=== PATIENT | male | born 1985 ===

== ENCOUNTER 2021-03-17 22:36 | Emergency (ER) | payer SELFPAY | END 2021-03-17 23:31 | disposition home or self-care (01) | LOC: MW.ED 22:36 | DX: S80.212A Abrasion, left knee, initial encounter (principal); F10.129 Alcohol abuse with intoxication, unspecified; W18.39XA Other fall on same level, initial encounter | CPT/HCPCS: 99283 ==

== ENCOUNTER 2022-11-14 09:18 | Inpatient (IN) | payer MEDICAID ==
[2022-11-14] MEDS ORDERED: Ondansetron 4 MG/2 ML SDV IVPUSH ONE ×2 (09:33→10:36)
[2022-11-14] MEDS ORDERED: Sodium Chloride 0.9% 1,000 ML IV ONE ×2 (09:33→10:50)
[2022-11-14] MEDS ORDERED: LORazepam 2 MG/ML SDV IVPUSH ONE ×2 (09:33→12:09)
[2022-11-14 09:42] LABS: BASOPHILS PERCENT AUTO 0.5 % (0.0-1.5); EOSINOPHILS PERCENT AUTO 0.7 % (0.0-7.0); HEMATOCRIT 42.5 % (38.0-50.0); HEMOGLOBIN 15.2 g/dL (13.0-17.0); LYMPHOCYTES ABSOLUTE AUTO 0.5 K/uL (0.6-2.4); LYMPHOCYTES PERCENT AUTO 9.2 % (16.0-40.0); MEAN CORPUSCULAR HEMOGLOBIN 30.9 pg (27.0-32.0); MEAN CORPUSCULAR HGB CONC 35.8 g/dL (31.0-37.0); MEAN CORPUSCULAR VOLUME 86.4 fL (80.0-98.0); MONOCYTES ABSOLUTE AUTO 0.4 K/uL (0.0-0.8); MONOCYTES PERCENT AUTO 6.1 % (0.0-15.0); NEUTROPHILS ABSOLUTE AUTO 4.9 K/uL (1.4-5.7); NEUTROPHILS PERCENT AUTO 83.5 % (48.0-80.0); NRBC ABSOLUTE 0 K/uL; RED BLOOD CELL COUNT 4.92 M/uL (4.50-5.90); WHITE BLOOD CELL COUNT,WBC 5.86 K/uL (4.0-11.0)
[2022-11-14] MEDS ORDERED: Thiamine 100 MG in Sodium Chloride 0.9% 100 ML IV STA (09:48)
[2022-11-14] MEDS ORDERED: Folic Acid 1 MG/0.2 ML UD Syringe IV STA (09:48)
[2022-11-14 09:50] LABS: INR 1.13 (0.86-1.11); PTT,PARTIAL THROMBOPLSTIN TIME 25.9 SEC (23.9-30.7)
[2022-11-14] MEDS ORDERED: Thiamine 200 MG/2 ML MDV IVPUSH ONE (10:00)
[2022-11-14 10:03] LABS: A/G RATIO 1.3 (0.9-1.6); ALANINE AMINOTRANSFERASE,ALT 271 IU/L (14-63); ALBUMIN 4.8 g/dL (3.4-5.0); ALKALINE PHOSPHATASE 133 U/L (46-116); ASPARTATE AMNIOTRANSFERASE,AST 383 IU/L (15-37); BILIRUBIN TOTAL 4.4 mg/dL (0.2-1.0); BLOOD UREA NITROGEN,BUN 12 mg/dL (7.0-18.0); CALCIUM 9.4 mg/dL (8.5-10.1); CARBON DIOXIDE,CO2 19.5 mmol/L (21.0-32.0); CHLORIDE,CL 90 mmol/L (98-107); CREATININE 0.9 mg/dL (0.8-1.3); EST CRCL DRUG DOSING (CG) 128.23 mL/min; ETHANOL BLOOD MEDICAL 71 mg/dL; GLUCOSE RANDOM 218 mg/dL (74-106); LIPASE 406 U/L (73-393); MAGNESIUM 1.4 mg/dL (1.8-2.4); POTASSIUM,K 2.5 mmol/L (3.5-5.1); PROTEIN TOTAL,TP 8.6 g/dL (6.4-8.2); SODIUM,NA 133 mmol/L (136-148)
[2022-11-14 10:05] LABS: ESTIMATED GFR 114 mL/min (>60)
[2022-11-14 10:06] LABS: PLATELET COUNT,PLT 98 K/uL (150-400)
[2022-11-14] MEDS ORDERED: Potassium Chloride 20 MEQ Tab.ER PO ONE ×2 (10:10→17:29)
[2022-11-14] MEDS ORDERED: Magnesium Sulfate/Water 2 GM in Premix Bag 1 BAG IV ONE (10:10)
[2022-11-14] MEDS ORDERED: Sodium Chloride 0.9% 500 ML IV ONE (10:15)
[2022-11-14] MEDS: Potassium Chloride 100 ML IV SCH ×2 (10:31→12:29)
[2022-11-14 10:47] LABS: LACTIC ACID 2.7 mmol/L (0.4-2.0)
[2022-11-14 12:25] LABS: APPEARANCE,URINE CLEAR; COLOR,URINE YELLOW; GLUCOSE,URINE NEGATIVE (NEGATIVE); KETONES,URINE 15 mg/dL (NEGATIVE); LEUKOCYTE ESTERASE,URINE NEGATIVE (NEGATIVE); NITRITE,URINE NEGATIVE (NEGATIVE); OCCULT BLOOD,URINE TRACE-INTACT (NEGATIVE); PH,URINE 6.5 (5.0-8.0); PROTEIN,URINE 100 mg/dL (NEGATIVE)
[2022-11-14 12:35] LABS: AMPHETAMINES SCREEN, URINE NEGATIVE (CUTOFF=500); BARBITURATE SCREEN,URINE NEGATIVE (CUTOFF=200); BENZODIAZEPINES SCREEN,URINE PRESUMPTIVE POSITIVE (CUTOFF=150); BUPRENORPHINE SCREEN,URINE NEGATIVE (CUTOFF=10); METHADONE SCREEN, URINE NEGATIVE (CUTOFF=200); METHAMPHETAMINES SCREEN, URINE NEGATIVE (CUTOFF=500); OXYCODONE SCREEN,URINE NEGATIVE (CUT0FF=100); PCP SCREEN,URINE NEGATIVE (CUTOFF=25); PROPOXYPHENE SCREEN,URINE NEGATIVE (CUTOFF=300); THC SCREEN,URINE 20 NG/ML NEGATIVE (CUTOFF=50)
[2022-11-14 12:47] LABS: BILIRUBIN,URINE SMALL (NEGATIVE)
[2022-11-14 12:48] LABS: BACTERIA,URINE RARE (NEGATIVE); EPITHELIAL CELLS,URINE FEW (NONE-FEW); MUCUS,URINE MODERATE (NONE-MOD); WBC,URINE 0-1 (0-5/HPF)
[2022-11-14] MEDS ORDERED: Sodium Chloride 0.9% 2.5 ML Syringe FLUSH PRN (13:30)
[2022-11-14] MEDS ORDERED: Sodium Chloride 0.9% 10 ML Syringe FLUSH PRN (13:30)
[2022-11-14] MEDS: Lactulose Soln 10 GM/15 ML 15 ML UD Cup PO SCH ×2 (14:26→22:04)
[2022-11-14] MEDS: Lactated Ringers 1,000 ML IV SCH ×2 (14:26→22:44)
[2022-11-14] MEDS: Pantoprazole 40 MG in Sodium Chloride 0.9% 10 ML IVPUSH SCH (14:26)
[2022-11-14 16:51] LABS: MAGNESIUM 1.8 mg/dL (1.8-2.4); PHOSPHORUS 3.8 mg/dL (2.6-4.7)
[2022-11-15] MEDS: Lactulose Soln 10 GM/15 ML 15 ML UD Cup PO SCH (06:47)
[2022-11-15] MEDS: Lactated Ringers 1,000 ML IV SCH ×3 (06:47→22:05)
[2022-11-15 07:17] LABS: BASOPHILS PERCENT AUTO 0.8 % (0.0-1.5); EOSINOPHILS ABSOLUTE AUTO 0.2 K/uL (0.0-0.7); EOSINOPHILS PERCENT AUTO 3.8 % (0.0-7.0); HEMOGLOBIN 12.4 g/dL (13.0-17.0); LYMPHOCYTES ABSOLUTE AUTO 0.5 K/uL (0.6-2.4); LYMPHOCYTES PERCENT AUTO 13.4 % (16.0-40.0); MEAN CORPUSCULAR HEMOGLOBIN 30.5 pg (27.0-32.0); MEAN CORPUSCULAR HGB CONC 34.4 g/dL (31.0-37.0); MEAN CORPUSCULAR VOLUME 88.5 fL (80.0-98.0); MONOCYTES ABSOLUTE AUTO 0.2 K/uL (0.0-0.8); MONOCYTES PERCENT AUTO 5.6 % (0.0-15.0); NEUTROPHILS PERCENT AUTO 76.4 % (48.0-80.0); NRBC ABSOLUTE 0 K/uL; PLATELET COUNT,PLT 73 K/uL (150-400); RED BLOOD CELL COUNT 4.07 M/uL (4.50-5.90); WHITE BLOOD CELL COUNT,WBC 3.96 K/uL (4.0-11.0)
[2022-11-15 07:35] LABS: INR 1.05 (0.86-1.11)
[2022-11-15 07:50] LABS: A/G RATIO 1.2 (0.9-1.6); ALBUMIN 3.6 g/dL (3.4-5.0); BILIRUBIN TOTAL 3.3 mg/dL (0.2-1.0); CALCIUM 8.7 mg/dL (8.5-10.1); CARBON DIOXIDE,CO2 23.6 mmol/L (21.0-32.0); CREATININE 0.5 mg/dL (0.8-1.3); EST CRCL DRUG DOSING (CG) 230.82 mL/min; MAGNESIUM 1.6 mg/dL (1.8-2.4); PHOSPHORUS 2.8 mg/dL (2.6-4.7); PROTEIN TOTAL,TP 6.5 g/dL (6.4-8.2)
[2022-11-15] MEDS: Folic Acid 1 MG Tab PO SCH (08:00)
[2022-11-15] MEDS ORDERED: Potassium Chloride 20 MEQ Tab.ER PO ONE (08:00)
[2022-11-15] MEDS ORDERED: Magnesium Sulfate/Water 4 GM in Premix Bag 1 BAG IV ONE (08:00)
[2022-11-15] MEDS: Thiamine 100 MG Tab PO SCH (08:00)
[2022-11-15] MEDS: Potassium Chloride 20 MEQ in Premix Bag 1 BAG IV SCH ×2 (08:38→10:27)
[2022-11-15] MEDS: LORazepam 2 MG/ML SDV IV PRN ×5 (09:21→22:12)
[2022-11-15] MEDS: Ondansetron 4 MG/2 ML SDV IVPUSH PRN (13:25)
[2022-11-15] MEDS: Pantoprazole 40 MG in Sodium Chloride 0.9% 10 ML IVPUSH SCH (13:56)
[2022-11-16] MEDS: Lactated Ringers 1,000 ML IV SCH (05:45)
[2022-11-16] MEDS: Ondansetron 4 MG/2 ML SDV IVPUSH PRN (06:26)
[2022-11-16 06:51] LABS: INR 1.09 (0.86-1.11)
[2022-11-16 07:07] LABS: BASOPHILS PERCENT AUTO 1.1 % (0.0-1.5); EOSINOPHILS ABSOLUTE AUTO 0.2 K/uL (0.0-0.7); EOSINOPHILS PERCENT AUTO 5.3 % (0.0-7.0); HEMATOCRIT 39.3 % (38.0-50.0); HEMOGLOBIN 13.5 g/dL (13.0-17.0); LYMPHOCYTES ABSOLUTE AUTO 0.6 K/uL (0.6-2.4); LYMPHOCYTES PERCENT AUTO 17.2 % (16.0-40.0); MEAN CORPUSCULAR HEMOGLOBIN 30.5 pg (27.0-32.0); MEAN CORPUSCULAR HGB CONC 34.4 g/dL (31.0-37.0); MEAN CORPUSCULAR VOLUME 88.7 fL (80.0-98.0); MONOCYTES ABSOLUTE AUTO 0.2 K/uL (0.0-0.8); MONOCYTES PERCENT AUTO 6.7 % (0.0-15.0); NEUTROPHILS ABSOLUTE AUTO 2.5 K/uL (1.4-5.7); NEUTROPHILS PERCENT AUTO 69.7 % (48.0-80.0); NRBC ABSOLUTE 0 K/uL; PLATELET COUNT,PLT 92 K/uL (150-400); RED BLOOD CELL COUNT 4.43 M/uL (4.50-5.90)
[2022-11-16 07:16] LABS: ALBUMIN 3.6 g/dL (3.4-5.0); BILIRUBIN TOTAL 2.4 mg/dL (0.2-1.0); CALCIUM 8.8 mg/dL (8.5-10.1); CARBON DIOXIDE,CO2 26.7 mmol/L (21.0-32.0); CREATININE 0.5 mg/dL (0.8-1.3); EST CRCL DRUG DOSING (CG) 230.82 mL/min; MAGNESIUM 1.6 mg/dL (1.8-2.4); POTASSIUM,K 3.1 mmol/L (3.5-5.1); PROTEIN TOTAL,TP 7.1 g/dL (6.4-8.2)
[2022-11-16] MEDS: Thiamine 100 MG Tab PO SCH (08:00)
[2022-11-16] MEDS ORDERED: Magnesium Sulfate/Water 2 GM in Premix Bag 1 BAG IV ONE (08:00)
[2022-11-16] MEDS: Folic Acid 1 MG Tab PO SCH (08:00)
[2022-11-16] MEDS: Potassium Chloride 20 MEQ in Premix Bag 1 BAG IV SCH ×3 (08:18→12:12)
[2022-11-16] MEDS: Potassium Chloride 20 MEQ Tab.ER PO SCH ×2 (08:18→12:07)
[2022-11-16] MEDS ORDERED: Lactated Ringers 1,000 ML IV SCH (09:15)
[2022-11-16] MEDS: Pantoprazole 40 MG in Sodium Chloride 0.9% 10 ML IVPUSH SCH (12:32)
== END 2022-11-16 16:40 | disposition home or self-care (01) | DRG 433 ==
LOC: MW.ED 09:18 → MW.ICU 11:58
PROVIDERS: ADMIT Internal Medicine; ATTEND Internal Medicine
DX: K70.10 Alcoholic hepatitis without ascites (principal); F10.139 Alcohol abuse with withdrawal, unspecified; D69.6 Thrombocytopenia, unspecified; E87.6 Hypokalemia; E83.42 Hypomagnesemia; Z20.822 Contact with and (suspected) exposure to COVID-19; F10.129 Alcohol abuse with intoxication, unspecified; F41.9 Anxiety disorder, unspecified; Z79.899 Other long term (current) drug therapy
CPT/HCPCS: 36415; 76705; 76705-26; 80053; 80305-QW; 80307; 81001; 82140; 83605; 83690; 83735; 84100; 84132; 85025; 85610; 85730; 86706; 86708; 86709; 86803; 87040; 87340; 99222; 99232; 99238; 99284; A9270-GY; C9113; J2060; J2405; J3411; J3475; J3480; J3490; J7030; J7040; J7120; U0002

== ENCOUNTER 2022-11-18 10:05 | Emergency (ER) | payer MEDICAID ==
[2022-11-18] MEDS ORDERED: Sodium Chloride 0.9% 1,000 ML IV ONE (10:46)
[2022-11-18] MEDS ORDERED: Sodium Chloride 0.9% 10 ML Syringe FLUSH PRN (10:46)
[2022-11-18] MEDS ORDERED: Sodium Chloride 0.9% 2.5 ML Syringe FLUSH PRN (10:46)
[2022-11-18 11:44] LABS: BASOPHILS ABSOLUTE AUTO 0.1 K/uL (0.0-0.1); BASOPHILS PERCENT AUTO 1.3 % (0.0-1.5); EOSINOPHILS ABSOLUTE AUTO 0.2 K/uL (0.0-0.7); EOSINOPHILS PERCENT AUTO 4.5 % (0.0-7.0); HEMATOCRIT 42.2 % (38.0-50.0); HEMOGLOBIN 14.3 g/dL (13.0-17.0); LYMPHOCYTES ABSOLUTE AUTO 1.3 K/uL (0.6-2.4); LYMPHOCYTES PERCENT AUTO 33.8 % (16.0-40.0); MEAN CORPUSCULAR HEMOGLOBIN 30.9 pg (27.0-32.0); MEAN CORPUSCULAR HGB CONC 33.9 g/dL (31.0-37.0); MEAN CORPUSCULAR VOLUME 91.1 fL (80.0-98.0); MONOCYTES ABSOLUTE AUTO 0.4 K/uL (0.0-0.8); MONOCYTES PERCENT AUTO 10.6 % (0.0-15.0); NEUTROPHILS PERCENT AUTO 49.8 % (48.0-80.0); NRBC ABSOLUTE 0 K/uL; PLATELET COUNT,PLT 151 K/uL (150-400); RED BLOOD CELL COUNT 4.63 M/uL (4.50-5.90); WHITE BLOOD CELL COUNT,WBC 3.96 K/uL (4.0-11.0)
[2022-11-18 12:10] LABS: ALBUMIN 3.8 g/dL (3.4-5.0); BILIRUBIN TOTAL 1.1 mg/dL (0.2-1.0); CALCIUM 8.7 mg/dL (8.5-10.1); CARBON DIOXIDE,CO2 23.8 mmol/L (21.0-32.0); CREATININE 0.6 mg/dL (0.8-1.3); EST CRCL DRUG DOSING (CG) 192.35 mL/min; MAGNESIUM 1.8 mg/dL (1.8-2.4); POTASSIUM,K 4.2 mmol/L (3.5-5.1); PROTEIN TOTAL,TP 7.5 g/dL (6.4-8.2)
[2022-11-18 12:13] LABS: LACTIC ACID 1.4 mmol/L (0.4-2.0)
== END 2022-11-18 13:09 | disposition left against medical advice (07) ==
LOC: MW.ED 10:05
DX: F10.10 Alcohol abuse, uncomplicated (principal); Y90.8 Blood alcohol level of 240 mg/100 ml or more
CPT/HCPCS: 36415; 80053; 80307; 82140; 83605; 83690; 83735; 85025; 96360; 99284; J3490; J7030

== ENCOUNTER 2022-12-29 19:28 | Inpatient (IN) | payer MEDICAID ==
[2022-12-29] MEDS ORDERED: Sodium Chloride 0.9% 1,000 ML IV ONE ×2 (19:45→21:14)
[2022-12-29] MEDS ORDERED: LORazepam 2 MG/ML SDV IVPUSH ONE ×2 (19:45→21:48)
[2022-12-29] MEDS ORDERED: Iopamidol 755 MG/ML 500 ML Multipack Bottle IVPUSH ONE (19:47)
[2022-12-29] MEDS ORDERED: Pantoprazole 40 MG in Sodium Chloride 0.9% 10 ML IVPUSH ONE (20:17)
[2022-12-29 20:18] LABS: BASOPHILS PERCENT AUTO 0.1 % (0.0-1.5); HEMATOCRIT 35.4 % (38.0-50.0); HEMOGLOBIN 12.5 g/dL (13.0-17.0); LYMPHOCYTES ABSOLUTE AUTO 0.4 K/uL (0.6-2.4); LYMPHOCYTES PERCENT AUTO 6.3 % (16.0-40.0); MEAN CORPUSCULAR HEMOGLOBIN 33.2 pg (27.0-32.0); MEAN CORPUSCULAR HGB CONC 35.3 g/dL (31.0-37.0); MEAN CORPUSCULAR VOLUME 93.9 fL (80.0-98.0); MONOCYTES ABSOLUTE AUTO 0.9 K/uL (0.0-0.8); MONOCYTES PERCENT AUTO 13.7 % (0.0-15.0); NEUTROPHILS ABSOLUTE AUTO 5.4 K/uL (1.4-5.7); NEUTROPHILS PERCENT AUTO 79.9 % (48.0-80.0); NRBC ABSOLUTE 0 K/uL; NRBC PERCENT 1.2 /100WBC; PLATELET COUNT,PLT 68 K/uL (150-400); RED BLOOD CELL COUNT 3.77 M/uL (4.50-5.90); WHITE BLOOD CELL COUNT,WBC 6.71 K/uL (4.0-11.0)
[2022-12-29 20:33] LABS: INR 1.17 (0.86-1.11)
[2022-12-29 20:52] LABS: LACTIC ACID 1.8 mmol/L (0.4-2.0)
[2022-12-29 20:57] LABS: AMPHETAMINES SCREEN, URINE NEGATIVE (CUTOFF=500); BARBITURATE SCREEN,URINE NEGATIVE (CUTOFF=200); BENZODIAZEPINES SCREEN,URINE NEGATIVE (CUTOFF=150); BUPRENORPHINE SCREEN,URINE NEGATIVE (CUTOFF=10); GLUCOSE,URINE NEGATIVE (NEGATIVE); KETONES,URINE >=80 mg/dL (NEGATIVE); LEUKOCYTE ESTERASE,URINE NEGATIVE (NEGATIVE); METHADONE SCREEN, URINE NEGATIVE (CUTOFF=200); METHAMPHETAMINES SCREEN, URINE NEGATIVE (CUTOFF=500); NITRITE,URINE POSITIVE (NEGATIVE); OCCULT BLOOD,URINE MODERATE (NEGATIVE); OXYCODONE SCREEN,URINE NEGATIVE (CUT0FF=100); PCP SCREEN,URINE NEGATIVE (CUTOFF=25); PROPOXYPHENE SCREEN,URINE NEGATIVE (CUTOFF=300); PROTEIN,URINE >=300 mg/dL (NEGATIVE); THC SCREEN,URINE 20 NG/ML NEGATIVE (CUTOFF=50)
[2022-12-29 20:58] LABS: CORONAVIRUS COVID-19 NAA NEGATIVE (NEGATIVE); INFLUENZA A NAA NEGATIVE (NEGATIVE); INFLUENZA B NAA NEGATIVE (NEGATIVE)
[2022-12-29 21:06] LABS: APPEARANCE,URINE SLT CLOUDY; BILIRUBIN,URINE LARGE (NEGATIVE)
[2022-12-29] MEDS ORDERED: cefTRIAXone 1 GM in Sodium Chloride 0.9% 50 ML IV ONE (21:07)
[2022-12-29 21:10] LABS: A/G RATIO 1.2 (0.9-1.6); ALANINE AMINOTRANSFERASE,ALT 96 IU/L (14-63); ALBUMIN 4.4 g/dL (3.4-5.0); ALKALINE PHOSPHATASE 102 U/L (46-116); ASPARTATE AMNIOTRANSFERASE,AST 149 IU/L (15-37); BLOOD UREA NITROGEN,BUN 42 mg/dL (7.0-18.0); CALCIUM 9.1 mg/dL (8.5-10.1); CHLORIDE,CL 86 mmol/L (98-107); CREATINE KINASE,CK 114 U/L (26-308); CREATININE 1.9 mg/dL (0.8-1.3); EST CRCL DRUG DOSING (CG) 60.74 mL/min; GLUCOSE RANDOM 184 mg/dL (74-106); MAGNESIUM 1.8 mg/dL (1.8-2.4); POTASSIUM,K 3.4 mmol/L (3.5-5.1); SODIUM,NA 133 mmol/L (136-148)
[2022-12-29 21:11] LABS: ESTIMATED GFR 46 mL/min (>60)
[2022-12-29 21:12] LABS: ETHANOL BLOOD MEDICAL < 3.0 mg/dL
[2022-12-29 22:08] LABS: COLOR,URINE AMBER; EPITHELIAL CELLS,URINE OCCASIONAL (NONE-FEW); WBC,URINE 0-2 (0-5/HPF)
[2022-12-29 22:09] LABS: BACTERIA,URINE MODERATE (NEGATIVE)
[2022-12-29 22:43] LABS: LIPASE 1235 U/L (16-77)
[2022-12-30] MEDS ORDERED: LORazepam 2 MG/ML SDV IVPUSH ONE (00:54)
[2022-12-30] MEDS: Sodium Chloride 0.9% 1,000 ML IV SCH ×3 (05:26→16:30)
[2022-12-30] MEDS: cefTRIAXone 1 GM in Sodium Chloride 0.9% 50 ML IV SCH (05:31)
[2022-12-30 07:05] LABS: BASOPHILS PERCENT AUTO 0.2 % (0.0-1.5); EOSINOPHILS PERCENT AUTO 0.2 % (0.0-7.0); HEMATOCRIT 31.1 % (38.0-50.0); HEMOGLOBIN 10.6 g/dL (13.0-17.0); LYMPHOCYTES ABSOLUTE AUTO 0.5 K/uL (0.6-2.4); LYMPHOCYTES PERCENT AUTO 10.1 % (16.0-40.0); MEAN CORPUSCULAR HEMOGLOBIN 31.9 pg (27.0-32.0); MEAN CORPUSCULAR HGB CONC 34.1 g/dL (31.0-37.0); MEAN CORPUSCULAR VOLUME 93.7 fL (80.0-98.0); MONOCYTES ABSOLUTE AUTO 0.7 K/uL (0.0-0.8); MONOCYTES PERCENT AUTO 13.7 % (0.0-15.0); NEUTROPHILS ABSOLUTE AUTO 3.8 K/uL (1.4-5.7); NEUTROPHILS PERCENT AUTO 75.8 % (48.0-80.0); NRBC ABSOLUTE 0 K/uL; NRBC PERCENT 1.3 /100WBC; PLATELET COUNT,PLT 63 K/uL (150-400); RED BLOOD CELL COUNT 3.32 M/uL (4.50-5.90); WHITE BLOOD CELL COUNT,WBC 4.95 K/uL (4.0-11.0)
[2022-12-30] MEDS ORDERED: LORazepam 2 MG/ML SDV IVPUSH PRN (07:09)
[2022-12-30 08:07] LABS: A/G RATIO 0.9 (0.9-1.6); ALBUMIN 3.5 g/dL (3.4-5.0); BILIRUBIN TOTAL 3.7 mg/dL (0.2-1.0); CALCIUM 8.6 mg/dL (8.5-10.1); CARBON DIOXIDE,CO2 10.9 mmol/L (21.0-32.0); CREATININE 0.9 mg/dL (0.8-1.3); EST CRCL DRUG DOSING (CG) 128.23 mL/min; PROTEIN TOTAL,TP 7.3 g/dL (6.4-8.2)
[2022-12-30] MEDS: Thiamine 200 MG/2 ML MDV IVPUSH SCH (09:00)
[2022-12-30] MEDS ORDERED: Thiamine 100 MG in Sodium Chloride 0.9% 100 ML IV SCH (09:00)
[2022-12-30] MEDS: Folic Acid 1 MG/0.2 ML UD Syringe SUBCUT SCH (09:08)
[2022-12-30 12:20] LABS: POTASSIUM,K 3.2 mmol/L (3.5-5.1)
[2022-12-30] MEDS ORDERED: Potassium Phosphates 3 mMole/ML 15 ML SDV IV ONE (14:30)
[2022-12-30] MEDS ORDERED: POTASSIUM PHOSPHATES IV ONE (15:00)
[2022-12-30] MEDS ORDERED: SODIUM CHLORIDE IV ONE (15:00)
[2022-12-30] MEDS: LORazepam 2 MG/ML SDV IVPUSH PRN (17:09)
[2022-12-30 17:42] LABS: CALCIUM 8.3 mg/dL (8.5-10.1); CARBON DIOXIDE,CO2 22.1 mmol/L (21.0-32.0); CREATININE 1.1 mg/dL (0.8-1.3); EST CRCL DRUG DOSING (CG) 104.92 mL/min; POTASSIUM,K 2.6 mmol/L (3.5-5.1)
[2022-12-30] MEDS ORDERED: Potassium Chloride 20 MEQ Tab.ER PO ONE (17:51)
[2022-12-30] MEDS: Potassium Chloride 20 MEQ in Premix Bag 1 BAG IV SCH ×2 (18:46→21:08)
[2022-12-31] MEDS: Sodium Chloride 0.9% 1,000 ML IV SCH ×5 (01:07→22:04)
[2022-12-31] MEDS: cefTRIAXone 1 GM in Sodium Chloride 0.9% 50 ML IV SCH (05:29)
[2022-12-31 06:50] LABS: BASOPHILS PERCENT AUTO 0.6 % (0.0-1.5); EOSINOPHILS ABSOLUTE AUTO 0.1 K/uL (0.0-0.7); EOSINOPHILS PERCENT AUTO 2.2 % (0.0-7.0); HEMATOCRIT 25.4 % (38.0-50.0); HEMOGLOBIN 8.9 g/dL (13.0-17.0); LYMPHOCYTES ABSOLUTE AUTO 0.7 K/uL (0.6-2.4); LYMPHOCYTES PERCENT AUTO 20.8 % (16.0-40.0); MEAN CORPUSCULAR HEMOGLOBIN 32.2 pg (27.0-32.0); MONOCYTES ABSOLUTE AUTO 0.4 K/uL (0.0-0.8); MONOCYTES PERCENT AUTO 11.3 % (0.0-15.0); NEUTROPHILS ABSOLUTE AUTO 2.1 K/uL (1.4-5.7); NEUTROPHILS PERCENT AUTO 65.1 % (48.0-80.0); NRBC ABSOLUTE 0 K/uL; NRBC PERCENT 1.8 /100WBC; PLATELET COUNT,PLT 61 K/uL (150-400); RED BLOOD CELL COUNT 2.76 M/uL (4.50-5.90); WHITE BLOOD CELL COUNT,WBC 3.18 K/uL (4.0-11.0)
[2022-12-31 07:20] LABS: BILIRUBIN TOTAL 3.7 mg/dL (0.2-1.0); CALCIUM 7.8 mg/dL (8.5-10.1); CARBON DIOXIDE,CO2 30.1 mmol/L (21.0-32.0); CREATININE 0.8 mg/dL (0.8-1.3); EST CRCL DRUG DOSING (CG) 144.26 mL/min; PHOSPHORUS 0.7 mg/dL (2.6-4.7)
[2022-12-31 07:26] LABS: POTASSIUM,K 2.4 mmol/L (3.5-5.1)
[2022-12-31] MEDS ORDERED: Potassium Chloride 20 MEQ Tab.ER PO ONE (07:31)
[2022-12-31] MEDS: Potassium Chloride 100 ML IV SCH ×2 (07:53→10:23)
[2022-12-31] MEDS: Thiamine 200 MG/2 ML MDV IVPUSH SCH (08:09)
[2022-12-31] MEDS ORDERED: Magnesium Sulfate/Water 2 GM in Premix Bag 1 BAG IV ONE (08:30)
[2022-12-31] MEDS: Folic Acid 1 MG/0.2 ML UD Syringe SUBCUT SCH (09:00)
[2022-12-31] MEDS: Phosphorus #1 250 MG Tab PO SCH ×3 (12:17→23:54)
[2022-12-31 14:27] LABS: CALCIUM 8.1 mg/dL (8.5-10.1); CARBON DIOXIDE,CO2 30.1 mmol/L (21.0-32.0); CREATININE 0.8 mg/dL (0.8-1.3); EST CRCL DRUG DOSING (CG) 144.26 mL/min; MAGNESIUM 1.7 mg/dL (1.8-2.4); PHOSPHORUS 0.6 mg/dL (2.6-4.7)
[2022-12-31] MEDS ORDERED: Potassium Phosphates 30 MMOLE in Sodium Chloride 0.9% 500 ML IV ONE (15:30)
[2022-12-31] MEDS ORDERED: Potassium Phosphates 3 mMole/ML 15 ML SDV IV ONE (15:30)
[2022-12-31 22:33] LABS: CARBON DIOXIDE,CO2 30.8 mmol/L (21.0-32.0); CREATININE 0.6 mg/dL (0.8-1.3); EST CRCL DRUG DOSING (CG) 192.35 mL/min; POTASSIUM,K 2.8 mmol/L (3.5-5.1)
[2022-12-31 22:36] LABS: MAGNESIUM 1.6 mg/dL (1.8-2.4); PHOSPHORUS 1.7 mg/dL (2.6-4.7)
[2023-01-01] MEDS ORDERED: Potassium Chloride 20 MEQ in Premix Bag 2 BAG IV ONE (01:14)
[2023-01-01] MEDS ORDERED: Potassium Chloride 20 MEQ Tab.ER PO STA (01:17)
[2023-01-01] MEDS: Potassium Chloride 100 ML IV SCH ×2 (01:34→04:40)
[2023-01-01] MEDS: Sodium Chloride 0.9% 1,000 ML IV SCH ×3 (03:33→19:34)
[2023-01-01] MEDS: Phosphorus #1 250 MG Tab PO SCH ×3 (05:57→17:38)
[2023-01-01] MEDS: cefTRIAXone 1 GM in Sodium Chloride 0.9% 50 ML IV SCH (06:01)
[2023-01-01 06:07] LABS: BASOPHILS PERCENT AUTO 1.2 % (0.0-1.5); EOSINOPHILS ABSOLUTE AUTO 0.1 K/uL (0.0-0.7); EOSINOPHILS PERCENT AUTO 2.4 % (0.0-7.0); HEMATOCRIT 25.8 % (38.0-50.0); HEMOGLOBIN 9.1 g/dL (13.0-17.0); LYMPHOCYTES ABSOLUTE AUTO 0.7 K/uL (0.6-2.4); LYMPHOCYTES PERCENT AUTO 27.1 % (16.0-40.0); MEAN CORPUSCULAR HEMOGLOBIN 32.4 pg (27.0-32.0); MEAN CORPUSCULAR HGB CONC 35.3 g/dL (31.0-37.0); MEAN CORPUSCULAR VOLUME 91.8 fL (80.0-98.0); MONOCYTES ABSOLUTE AUTO 0.4 K/uL (0.0-0.8); NEUTROPHILS ABSOLUTE AUTO 1.3 K/uL (1.4-5.7); NEUTROPHILS PERCENT AUTO 54.3 % (48.0-80.0); NRBC ABSOLUTE 0 K/uL; NRBC PERCENT 1.9 /100WBC; PLATELET COUNT,PLT 97 K/uL (150-400); RED BLOOD CELL COUNT 2.81 M/uL (4.50-5.90); WHITE BLOOD CELL COUNT,WBC 2.47 K/uL (4.0-11.0)
[2023-01-01 06:46] LABS: CALCIUM 8.3 mg/dL (8.5-10.1); CARBON DIOXIDE,CO2 29.3 mmol/L (21.0-32.0); CREATININE 0.5 mg/dL (0.8-1.3); EST CRCL DRUG DOSING (CG) 230.82 mL/min; MAGNESIUM 1.6 mg/dL (1.8-2.4); PHOSPHORUS 1.6 mg/dL (2.6-4.7)
[2023-01-01] MEDS ORDERED: Magnesium Sulfate/Water 2 GM in Premix Bag 1 BAG IV ONE (07:39)
[2023-01-01] MEDS ORDERED: Potassium Chloride 20 MEQ Tab.ER PO ONE (07:39)
[2023-01-01] MEDS: Thiamine 200 MG/2 ML MDV IVPUSH SCH (08:25)
[2023-01-01] MEDS: Folic Acid 1 MG/0.2 ML UD Syringe SUBCUT SCH (08:43)
[2023-01-01] MEDS ORDERED: Potassium Phosphates 3 mMole/ML 15 ML SDV IV ONE (10:15)
[2023-01-01] MEDS ORDERED: Potassium Phosphates 30 MMOLE in Sodium Chloride 0.9% 500 ML IV ONE (10:30)
[2023-01-01 17:46] LABS: CALCIUM 8.2 mg/dL (8.5-10.1); CARBON DIOXIDE,CO2 28.2 mmol/L (21.0-32.0); CREATININE 0.5 mg/dL (0.8-1.3); EST CRCL DRUG DOSING (CG) 230.82 mL/min; MAGNESIUM 1.9 mg/dL (1.8-2.4); PHOSPHORUS 3.4 mg/dL (2.6-4.7); POTASSIUM,K 3.6 mmol/L (3.5-5.1)
[2023-01-01] MEDS: LORazepam 2 MG/ML SDV IVPUSH PRN (21:42)
[2023-01-02] MEDS: Phosphorus #1 250 MG Tab PO SCH ×4 (00:29→17:51)
[2023-01-02] MEDS: Sodium Chloride 0.9% 1,000 ML IV SCH ×5 (00:30→21:55)
[2023-01-02] MEDS: cefTRIAXone 1 GM in Sodium Chloride 0.9% 50 ML IV SCH (06:01)
[2023-01-02 06:03] LABS: BASOPHILS PERCENT AUTO 1.2 % (0.0-1.5); EOSINOPHILS ABSOLUTE AUTO 0.1 K/uL (0.0-0.7); EOSINOPHILS PERCENT AUTO 4.6 % (0.0-7.0); HEMATOCRIT 30.2 % (38.0-50.0); HEMOGLOBIN 10.1 g/dL (13.0-17.0); LYMPHOCYTES ABSOLUTE AUTO 0.7 K/uL (0.6-2.4); MEAN CORPUSCULAR HEMOGLOBIN 32.1 pg (27.0-32.0); MEAN CORPUSCULAR HGB CONC 33.4 g/dL (31.0-37.0); MEAN CORPUSCULAR VOLUME 95.9 fL (80.0-98.0); MONOCYTES ABSOLUTE AUTO 0.4 K/uL (0.0-0.8); MONOCYTES PERCENT AUTO 16.6 % (0.0-15.0); NEUTROPHILS ABSOLUTE AUTO 1.3 K/uL (1.4-5.7); NEUTROPHILS PERCENT AUTO 50.6 % (48.0-80.0); NRBC ABSOLUTE 0 K/uL; NRBC PERCENT 1.6 /100WBC; PLATELET COUNT,PLT 148 K/uL (150-400); RED BLOOD CELL COUNT 3.15 M/uL (4.50-5.90); WHITE BLOOD CELL COUNT,WBC 2.59 K/uL (4.0-11.0)
[2023-01-02 06:49] LABS: ALBUMIN 3.2 g/dL (3.4-5.0); BILIRUBIN TOTAL 2.3 mg/dL (0.2-1.0); CALCIUM 8.5 mg/dL (8.5-10.1); CARBON DIOXIDE,CO2 28.6 mmol/L (21.0-32.0); CREATININE 0.5 mg/dL (0.8-1.3); EST CRCL DRUG DOSING (CG) 230.82 mL/min; MAGNESIUM 1.9 mg/dL (1.8-2.4); PHOSPHORUS 3.6 mg/dL (2.6-4.7); POTASSIUM,K 3.6 mmol/L (3.5-5.1); PROTEIN TOTAL,TP 6.4 g/dL (6.4-8.2)
[2023-01-02] MEDS: Folic Acid 1 MG/0.2 ML UD Syringe SUBCUT SCH (08:29)
[2023-01-02] MEDS: Thiamine 200 MG/2 ML MDV IVPUSH SCH (08:33)
[2023-01-02 10:26] LABS: INR 1.1 (0.86-1.11)
[2023-01-02 15:20] LABS: CALCIUM 8.7 mg/dL (8.5-10.1); CREATININE 0.6 mg/dL (0.8-1.3); EST CRCL DRUG DOSING (CG) 192.35 mL/min; MAGNESIUM 1.6 mg/dL (1.8-2.4); POTASSIUM,K 3.6 mmol/L (3.5-5.1)
[2023-01-02] MEDS ORDERED: Magnesium Sulfate/Water 2 GM in Premix Bag 1 BAG IV ONE (17:22)
[2023-01-03] MEDS: Phosphorus #1 250 MG Tab PO SCH ×5 (00:07→23:19)
[2023-01-03 06:18] LABS: BASOPHILS PERCENT AUTO 0.7 % (0.0-1.5); EOSINOPHILS ABSOLUTE AUTO 0.1 K/uL (0.0-0.7); EOSINOPHILS PERCENT AUTO 2.6 % (0.0-7.0); HEMATOCRIT 30.3 % (38.0-50.0); HEMOGLOBIN 10.2 g/dL (13.0-17.0); LYMPHOCYTES ABSOLUTE AUTO 0.7 K/uL (0.6-2.4); LYMPHOCYTES PERCENT AUTO 24.8 % (16.0-40.0); MEAN CORPUSCULAR HEMOGLOBIN 32.9 pg (27.0-32.0); MEAN CORPUSCULAR HGB CONC 33.7 g/dL (31.0-37.0); MEAN CORPUSCULAR VOLUME 97.7 fL (80.0-98.0); MONOCYTES ABSOLUTE AUTO 0.4 K/uL (0.0-0.8); MONOCYTES PERCENT AUTO 14.8 % (0.0-15.0); NEUTROPHILS ABSOLUTE AUTO 1.5 K/uL (1.4-5.7); NEUTROPHILS PERCENT AUTO 57.1 % (48.0-80.0); NRBC ABSOLUTE 0 K/uL; PLATELET COUNT,PLT 179 K/uL (150-400)
[2023-01-03] MEDS: cefTRIAXone 1 GM in Sodium Chloride 0.9% 50 ML IV SCH (06:49)
[2023-01-03 06:51] LABS: ALBUMIN 3.1 g/dL (3.4-5.0); BILIRUBIN TOTAL 1.8 mg/dL (0.2-1.0); CALCIUM 8.4 mg/dL (8.5-10.1); CARBON DIOXIDE,CO2 26.6 mmol/L (21.0-32.0); CREATININE 0.5 mg/dL (0.8-1.3); EST CRCL DRUG DOSING (CG) 230.82 mL/min; MAGNESIUM 1.9 mg/dL (1.8-2.4); PHOSPHORUS 3.2 mg/dL (2.6-4.7); POTASSIUM,K 3.5 mmol/L (3.5-5.1); PROTEIN TOTAL,TP 6.3 g/dL (6.4-8.2)
[2023-01-03] MEDS: Folic Acid 1 MG/0.2 ML UD Syringe SUBCUT SCH (08:38)
[2023-01-03] MEDS: Thiamine 200 MG/2 ML MDV IVPUSH SCH (08:40)
[2023-01-03] MEDS: Sodium Chloride 0.9% 1,000 ML IV SCH ×3 (09:39→20:21)
[2023-01-04] MEDS: Sodium Chloride 0.9% 1,000 ML IV SCH ×2 (01:50→06:54)
[2023-01-04] MEDS: Phosphorus #1 250 MG Tab PO SCH ×2 (05:32→11:36)
[2023-01-04 06:13] LABS: BASOPHILS PERCENT AUTO 0.6 % (0.0-1.5); EOSINOPHILS ABSOLUTE AUTO 0.1 K/uL (0.0-0.7); EOSINOPHILS PERCENT AUTO 2.2 % (0.0-7.0); HEMATOCRIT 31.7 % (38.0-50.0); HEMOGLOBIN 10.3 g/dL (13.0-17.0); LYMPHOCYTES ABSOLUTE AUTO 0.8 K/uL (0.6-2.4); LYMPHOCYTES PERCENT AUTO 24.1 % (16.0-40.0); MEAN CORPUSCULAR HEMOGLOBIN 32.4 pg (27.0-32.0); MEAN CORPUSCULAR HGB CONC 32.5 g/dL (31.0-37.0); MEAN CORPUSCULAR VOLUME 99.7 fL (80.0-98.0); MONOCYTES ABSOLUTE AUTO 0.6 K/uL (0.0-0.8); NEUTROPHILS ABSOLUTE AUTO 1.7 K/uL (1.4-5.7); NEUTROPHILS PERCENT AUTO 54.1 % (48.0-80.0); NRBC ABSOLUTE 0 K/uL; PLATELET COUNT,PLT 249 K/uL (150-400); RED BLOOD CELL COUNT 3.18 M/uL (4.50-5.90); WHITE BLOOD CELL COUNT,WBC 3.16 K/uL (4.0-11.0)
[2023-01-04 06:33] LABS: ALBUMIN 3.3 g/dL (3.4-5.0); BILIRUBIN TOTAL 1.6 mg/dL (0.2-1.0); CALCIUM 8.2 mg/dL (8.5-10.1); CARBON DIOXIDE,CO2 26.1 mmol/L (21.0-32.0); CREATININE 0.6 mg/dL (0.8-1.3); EST CRCL DRUG DOSING (CG) 192.35 mL/min; MAGNESIUM 1.9 mg/dL (1.8-2.4); PHOSPHORUS 3.5 mg/dL (2.6-4.7); POTASSIUM,K 4.3 mmol/L (3.5-5.1); PROTEIN TOTAL,TP 6.6 g/dL (6.4-8.2)
[2023-01-04] MEDS: Folic Acid 1 MG/0.2 ML UD Syringe SUBCUT SCH (08:35)
[2023-01-04] MEDS: Thiamine 200 MG/2 ML MDV IVPUSH SCH (09:07)
== END 2023-01-04 13:15 | disposition home or self-care (01) | DRG 897 ==
LOC: MW.ED 19:28 → MW.MS 12-30 01:52
PROVIDERS: ADMIT Internal Medicine; ATTEND Internal Medicine
DX: F10.139 Alcohol abuse with withdrawal, unspecified (principal); N17.9 Acute kidney failure, unspecified; N30.01 Acute cystitis with hematuria; R65.10 Systemic inflammatory response syndrome (SIRS) of non-infectious origin without acute organ dysfunction; K70.10 Alcoholic hepatitis without ascites; D69.6 Thrombocytopenia, unspecified; Z20.822 Contact with and (suspected) exposure to COVID-19; Y04.8XXA Assault by other bodily force, initial encounter; E87.6 Hypokalemia; E83.42 Hypomagnesemia; E83.39 Other disorders of phosphorus metabolism; R77.8 Other specified abnormalities of plasma proteins
CPT/HCPCS: 0240U; 36415; 70450; 70450-26; 70486; 70486-26; 71260; 71260-26; 72125; 72125-26; 74177; 74177-26; 76705; 76705-26; 80048; 80053; 80305-QW; 80307; 81001; 82140; 82550; 82607; 83605; 83690; 83735; 84100; 84484; 85025; 85610; 87040; 87086; 93005; 93010; 96365; 96375; 96376; 97110-GP; 97162-GP; 97163-GP; 97530-GP; 99285; 99291; A9270-GY; C9113; J0696; J2060; J3411; J3475; J3480; J3490; J7030; J7040; Q9967